=== PATIENT | male | born 1970 | race Caucasian/White ===

== ENCOUNTER 2018-06-19 21:43 | Emergency (ER) | payer BC, OTHER ==
[2018-06-19] MEDS ORDERED: LORazepam INJ* 2 MG/ML 1 ML VIAL IV PUSH ONE (23:24)
[2018-06-19] MEDS ORDERED: Ondansetron INJ* 2 MG/ML VIAL IV ONE (23:24)
--- NOTE | 2018-06-19 23:27 | ED ---
HPI Chest Pain - HPI Summary HPI Summary: This patient is a 48 year old M brought in by ambulance to [facility] with a chief complaint of chest tightness since 20:45. The patient rates the pain 2/10 in severity. Symptoms aggravated by recent stress. Symptoms alleviated by nothing. Patient reports lightheadedness and nausea. Patient denies emesis. The patient reports that his lightheadedness has resolved since his arrival to [facility]. Patient has hx of anxiety and notes his symptoms are similar to when he last had an anxiety attack 5 years ago. The patient notes that his a few months ago and he has been under a lot of stress. Patient notes that he smokes daily. Patient denies any cardiac hx or FHx. - History of Current Complaint Chief Complaint: EDChestPainROMI Time Seen by Provider: 06/19/18 23:04 Hx Obtained From: Patient Onset/Duration: Started Hours Ago - 20:45, Atraumatic, Still Present Timing: Constant Initial Severity: Mild Current Severity: Mild Pain Intensity: 2 Pain Scale Used: 0-10 Numeric Chest Pain Location: Diffuse Chest Pain Radiates: No Character: Tightness Aggravating Factor(s): Other: - recent stress Alleviating Factor(s): Nothing Associated Signs and Symptoms: Positive: Chest Pain - chest tightness, Recent Stress, Lightheadedness, Nausea. Negative: Vomiting - Allergy/Home Medications Allergies/Adverse Reactions: Allergies Allergy/AdvReac Type Severity Reaction Status Date / Time Penicillins Allergy Anaphylatic Verified 06/19/18 21:55 Shock Home Medications: Home Medications Montelukast Sodium TAB* [Singulair TAB*] 10 mg PO DAILY 06/20/18 [History Confirmed 06/20/18] Ranitidine HCl 150 mg PO BID 06/20/18 [History Confirmed 06/20/18] PMH/Surg Hx/FS Hx/Imm Hx Cardiovascular History: Denies: Hx Hypertension Opthamlomology History: Denies: Hx Legally Blind EENT History: Denies: Hx Deafness Psychiatric History: Reports: Hx Anxiety - Surgical History Surgery Procedure, Year, and Place: none - Immunization History Date of Tetanus Vaccine: utd Date of Influenza Vaccine: none Infectious Disease History: No Infectious Disease History: Denies: Traveled Outside the [place] in Last 30 Days - Family History Known Family History: Negative: Cardiac Disease, Hypertension - Social History Alcohol Use: None Substance Use Type: Reports: None Smoking Status (MU): Heavy Every Day Tobacco Smoker Review of Systems Negative: Fever Negative: Epistaxis Positive: Chest Pain - chest tightness Positive: Nausea. Negative: Vomiting Neurological: Other - lightheadedness All Other Systems Reviewed And Are Negative: Yes Physical Exam - Summary Physical Exam Summary: VITAL SIGNS: Reviewed. GENERAL: Patient is a well-developed and nourished MALE who is lying comfortable in the stretcher. Patient is not in any acute respiratory distress. HEAD AND FACE: No signs of trauma. No ecchymosis, hematomas or skull depressions. No sinus tenderness. EYES: PERRLA, EOMI x 2, No injected conjunctiva, no nystagmus. EARS: Hearing grossly intact. Ear canals and tympanic membranes are within normal limits. MOUTH: Oropharynx within normal limits. NECK: Supple, trachea is midline, no adenopathy, no JVD, no carotid bruit, no c- spine tenderness, neck with full ROM. CHEST: Symmetric, no tenderness at palpation LUNGS: Clear to auscultation bilaterally. No wheezing or crackles. CVS: Regular rate and rhythm, S1 and S2 present, no murmurs or gallops appreciated. ABDOMEN: Soft, non-tender. No signs of distention. No rebound no guarding, and no masses palpated. Bowel sounds are normal. EXTREMITIES: FROM in all major joints, no edema, no cyanosis or clubbing. NEURO: Alert and oriented x 3. No acute neurological deficits. Speech is normal and follows commands. SKIN: Dry and warm PSYCH: Patient seems anxious Triage Information Reviewed: Yes Vital Signs On Initial Exam: Initial Vitals Temp Pulse Resp BP Pulse Ox 98.0 F 90 16 133/86 97 06/19/18 21:48 06/19/18 21:48 06/19/18 21:48 06/19/18 21:48 06/19/18 21:48 Vital Signs Reviewed: Yes Diagnostics - Vital Signs Vital Signs Temp Pulse Resp BP Pulse Ox 06/19/18 23:01 83 21 98 06/19/18 22:58 81 16 148/86 96 06/19/18 22:57 78 17 96 06/19/18 21:48 98.0 F 90 16 133/86 97 - Laboratory Result Diagrams: 06/19/18 23:57 06/19/18 23:57 Lab Statement: Any lab studies that have been ordered have been reviewed, and results considered in the medical decision making process. - Radiology CXR Radiology Interpretation Completed By: ED Physician - Dr. Sosa, pending official report Summary of Radiographic Findings: Impression: no acute process - EKG 21:57 Cardiac Rate: NL - at 82 bpm EKG Rhythm: Sinus Rhythm ST Segment: Normal Ectopy: None Summary of EKG Findings: NSR at 82 bpm with nml axis, nml intervals, and no ischemic changes. Chest Pain Course/Dx - Course Course Of Treatment: This patient is a 48 year old M with hx anxiety brought in by ambulance to [facility] with a chief complaint of chest tightness, lightheadedness , and nausea since 20:45The patient notes that his a few months ago and he has been under a lot of recent stress. An EKG reveals NSR at 82 bpm with nml axis, nml intervals, and no ischemic changes. CXR reveals, per ED physician, no acute process. Bloodwork and UA obtained. In the ED course the patient was given Zofran and Ativan. Patient will be discharged home with follow up from Dr. Sepulveda, copper tapper, for an outpatient cardiac stress test in 1-2 days. Dx atypical chest pain and anxiety. The patient is agreeable with this plan. - Diagnoses Provider Diagnoses: Atypical chest pain, Anxiety Discharge - Sign-Out/Discharge Documenting (check all that apply): Patient Departure - discharge home Patient Received Moderate/Deep Sedation with Procedure: No - Discharge Plan Condition: Stable Disposition: HOME Patient Education Materials: Chest Pain (ED), Anxiety (ED) Referrals: Zoey Kelly NP [Primary Care Provider] - Zari Sepulveda MD [Medical Doctor] - 1 Day Additional Instructions: Follow up with Dr. Sepulveda, copper tapper, for an outpatient cardiac stress test in 1-2 days. Return to the emergency department with any new or worsening symptoms. - Attestation Statements Document Initiated by Scribe: Yes Documenting Scribe: Kecia Smith Provider For Whom Scribe is Documenting (Include Credential): Berry Sosa MD Scribe Attestation: Kecia Cunningham, scribed for Berry Sosa MD on 06/20/18 at 0331. Status of Scribe Document: Ready
[2018-06-20 00:05] LABS: ABS Basophils 0.1 10^3/ul (0-0.2); ABS Eosinophils 0.2 10^3/ul (0-0.6); ABS Lymphocytes 2.5 10^3/ul (1.0-4.8); ABS Monocytes 0.6 10^3/ul (0-0.8); ABS Neutrophils 6.5 10^3/ul (1.5-7.7); ABS Nucleated RBC 0 10^3/ul; Eosinophil % 1.6 %; Hematocrit 49 % (42-52); Hemoglobin 16.6 g/dl (14.0-18.0); Lymphocyte % 25.8 %; Mean Corpuscular HGB Conc 34 g/dl (31-36); Mean Corpuscular Hemoglobin 32 pg (27-31); Mean Corpuscular Volume 95 fL (80-94); Mean Platelet Volume 8.1 fL (7.4-10.4); Nucleated Red Blood Cells % 0; Platelet Count 228 10^3/ul (150-450); Red Blood Count 5.13 10^6/ul (4.00-5.40); Red Cell Distribution Width 14 % (10.5-15); White Blood Count 9.8 10^3/ul (3.5-10.8)
[2018-06-20 00:22] LABS: Albumin 4.5 g/dL (3.2-5.2); Albumin/Globulin Ratio 1.9 (1-3); BUN/Creatinine Ratio 10.2 (8-20); Calcium 9.2 mg/dL (8.6-10.3); Globulin 2.4 g/dL (2-4); Magnesium 2.2 mg/dL (1.9-2.7); Potassium 3.9 mmol/L (3.5-5.0); Total Bilirubin 0.4 mg/dL (0.2-1.0); Total Protein 6.9 g/dL (6.4-8.9)
[2018-06-20 00:30] LABS: Activated Partial Thrombo Time 30.4 seconds (26.0-36.3); INR 1.08 (0.77-1.02)
[2018-06-20 03:47] VITALS: BP 104/70
== END 2018-06-20 03:49 | disposition home or self-care (01) ==
LOC: ED 21:43
DX: R07.89 Other chest pain (principal); F17.210 Nicotine dependence, cigarettes, uncomplicated; Z88.0 Allergy status to penicillin; F41.9 Anxiety disorder, unspecified
CPT/HCPCS: 36415; 71045; 80053; 83735; 84484; 85025; 85610; 85730; 93005; 96374; 96375; 99283; J2060; J2405